=== PATIENT | female | born 2000 | race Caucasian/White ===

== ENCOUNTER 2024-03-02 22:26 | Emergency (ER) | payer OTHER ==
[~2024-03-02] VITALS: Ht 157.5 cm; Wt 55.0 kg
[2024-03-02 22:43] VITALS: BP 112/71; PULSE 117; RESP 18; TEMP 98.4; O2SAT 99
[2024-03-02] MEDS ORDERED: ONDANSETRON HCL 4MG/2ML INJ IV STA (23:21)
[2024-03-03 00:17] LABS: BASOPHILS % 0.4 % (0.0-2.0); HEMATOCRIT. 38.1 % (36.0-48.0); LYMPHOCYTES % 22.3 % (20.0-50.0); MEAN CORPUSCULAR VOLUME 88.1 fL (81.0-99.0); MONOCYTES % 5.6 % (2.0-8.0); NEUTROPHILS % 70.7 % (40.0-76.0); PLATELET 345 x1000/uL (130-400); RED BLOOD CELL COUNT 4.32 mill/uL (4.2-5.4); RED CELL DISTRIBUTION WIDTH 14.4 % (11.6-14.6); WHITE BLOOD COUNT 8.4 x1000/uL (4.5-11.0)
[2024-03-03 00:22] LABS: CHLORIDE 106 mEq/L (98-107); POTASSIUM 3.2 mEq/L (3.5-5.1); SODIUM 143 mEq/L (136-145)
[2024-03-03 00:23] LABS: CALCIUM 9.2 mg/dL (8.7-10.4); CARBON DIOXIDE 25 mEq/L (21-32)
[2024-03-03 00:28] LABS: CREATININE 0.8 mg/dL (0.6-1.0); ETHANOL BLOOD 246 mg/dL (<10); GLUCOSE 109 mg/dL (70-105); UREA NITROGEN BLOOD 7 mg/dL (9-23)
[2024-03-03 00:51] LABS: HCG SCREEN NEGATIVE
[2024-03-03] MEDS: ONDANSETRON HCL 4MG/2ML INJ IV NR (01:41)
== END 2024-03-03 02:30 | disposition home or self-care (01) ==
LOC: ER 22:26
DX: T51.0X1A Toxic effect of ethanol, accidental (unintentional), initial encounter (principal); R11.10 Vomiting, unspecified; X58.XXXA Exposure to other specified factors, initial encounter
CPT/HCPCS: 80048; 80320; 84703; 83690; 85025; 36415; 99283; 96374; J2405; Z7610; G0480